=== PATIENT | male | born 1980 | race Hispanic/Latino ===

== ENCOUNTER → 2020-03-06 | Day surgery (SDC) | payer BC ==
[~2020-03-06] MED LIST: B&O 60MG R/S 60 MG SUPP PR ONE; DEXAMETHASONE SOD PHOS INJ 4 MG/ML VIAL ONE; FENTANYL CITRATE/PF 100MCG/2 ML INJ ONE; FLOMAX0.4 MG PO; GENTAMICIN 80MG/NS 100 ML 200 ML IV ONE; IOPAMIDOL 300MG/ML 50ML INFUS..BTL IV ONE; KETOROLAC TROMETHAMINE 30 MG/ML VIAL ONE; LIDOCAINE HCL 2% LOCAL INJ 5 ML SDV VIAL INJ ONE; METOCLOPRAMIDE HCL 10 MG/2ML VIAL ONE; MIDAZOLAM HCL 2 MG/2 ML VIAL ONE; ONDANSETRON HCL INJ 2MG/ML 2ML 2 MG/ML VIAL ONE; PROPOFOL IV EMULSION 10 MG/ML 20 ML VIAL ONE; SEVOFLURANE INHAL SOLN 250 ML PEN BTL ONE
[2020-03-06 11:45] VITALS: BP 125/60
--- NOTE | 2020-03-20 10:51 | Operative Report ---
DATE OF PROCEDURE: 03/06/2020 SURGEON: Holland Faulkner MD PREOPERATIVE DIAGNOSES: 1. Intravesical fistula. 2. Urinary tract infections. POSTOPERATIVE DIAGNOSES: 1. Intravesical fistula. 2. Urinary tract infections. OPERATION PERFORMED: 1. Cystourethroscopy with bilateral ureteral catheterization and retrograde ureteropyelography (separate procedure performed for the urinary tract infections). 2. Interpretation of retrograde ureteropyelography. 3. Supervision of fluoroscopy, no radiologist present. 4. Cystourethroscopy with insertion of bilateral indwelling ureteral stents (separately performed to assist this as next surgery to avoid ureteral injury with the performance of fistula repair). ANESTHESIA: General. COMPLICATIONS: None. CLINICAL SUMMARY: Bony Suresh is a 40-year-old man who has had symptoms consistent with a colovesical fistula for many years. The patient is brought for evaluation and stenting if fistula is suspected in preparation for the next step of management in conjunction with General Surgery. He is aware of the risks of bleeding, infection, injury to adjacent structures, need for additional procedures and the fact that he will have a temporary indwelling ureteral stents that will require followup and removal. He understood these risks and elected to proceed. OPERATIVE PROCEDURE IN DETAIL: Informed consent was verified. Bony Suresh was properly identified, taken to the operating room, placed on the cystoscopy table in supine position. Anesthesia was uneventfully begun. The patient was then carefully and gently repositioned in the dorsal lithotomy position. All pressure points well padded. His genitalia were prepared and draped in usual sterile fashion. The cystoscope sheath with the visual obturator in place was atraumatically inserted into the patient's urethra, was guided unremarkably urethra through normal sphincteric region through the prostate bed, which was unremarkable into the patient's bladder. There was evidence of chronic and acute cystitis. There was a fistula noted at the dome of this erythematous region with noted there. There were no suspicious mucosal lesions. There were no signs of cancer. A ureteral catheter was used to cannulate each ureter and retrograde ureteropyelograms were performed with cystoscopic fluoroscopic guidance. Bilateral indwelling ureteral stents were then placed to coil the patient's kidneys as well as the patient's bladder. The retaining sutures were cut short. Interpretation of retrograde ureteropyelography contrast was instilled in retrograde fashion bilaterally. There were no tumors, no stones, and no diverticula. Unobstructed drainage was observed bilaterally fluoroscopically. The stents were in good position, coiled in the patient's kidneys as well as the patient's bladder at end of the case. The patient's bladder was drained. Cystoscope was withdrawn. Belladonna and opium suppository were placed revealing a small 20 g prostate, smooth, nonfluctuant without any nodules. The patient was then uneventfully reversed from anesthesia and taken to recovery in stable condition. Plan will be to have the patient complete his general surgery workup in preparation for enterovesical fistula repair, which we will perform in conjunction with General Surgery service. MD MAX Schwarz/JENNIFER /[id number]
== END | disposition home or self-care (01) ==
LOC: OR 08:45
PROVIDERS: ATTEND Urology
DX: N30.00 Acute cystitis without hematuria (principal); N32.1 Vesicointestinal fistula; N30.20 Other chronic cystitis without hematuria; E66.01 Morbid (severe) obesity due to excess calories; I10 Essential (primary) hypertension; K57.90 Diverticulosis of intestine, part unspecified, without perforation or abscess without bleeding; K42.9 Umbilical hernia without obstruction or gangrene; I83.90 Asymptomatic varicose veins of unspecified lower extremity; Z01.810 Encounter for preprocedural cardiovascular examination; Z01.812 Encounter for preprocedural laboratory examination; Z11.59 Encounter for screening for other viral diseases
CPT/HCPCS: 52332; 74420; 87086; 87186; 93005; C1769; C2617; J1100; J1580; J1885; J2001; J2250; J2405; J2704; J2765; J3010; Q9967; U0002

== ENCOUNTER 2020-04-29 06:52 | Inpatient (IN) | payer BC ==
[2020-04-24 10:15] LABS: BASOPHILS % 0.4 % (0.0-1.0); EOSINOPHILS # (AUTO) 0.2 (0.0-0.4); EOSINOPHILS % 2.4 % (0.0-6.0); HEMOGLOBIN 15.2 g/dL (14.0-18.0); LYMPHOCYTES # (AUTO) 2.3 (1.0-3.2); LYMPHOCYTES % 24.5 % (18.0-39.1); MEAN CORPUSCULAR VOLUME 84.7 fL (81-99); MONOCYTES # (AUTO) 0.4 (0.2-0.8); MONOCYTES % 4.5 % (4.4-11.3); NEUTROPHILS # (AUTO) 6.2 (2.1-6.9); NEUTROPHILS % 67.4 % (38.7-80.0); PLATELET COUNT 297 x10e3/uL (140-360); RED BLOOD COUNT 5.43 x10e6/uL (4.3-5.7); RED CELL DISTRIBUTION WIDTH 14.2 % (11.7-14.4)
[2020-04-24 10:45] LABS: ALANINE AMINOTRANSFERASE 34 IU/L (0-55); ALBUMIN 3.8 g/dL (3.5-5.0); ALBUMIN/GLOBULIN RATIO 0.7 (0.8-2.0); ALKALINE PHOSPHATASE 84 IU/L (40-150); ANION GAP 12.3 mmol/L (8-16); BLOOD UREA NITROGEN 14 mg/dL (7-26); BUN/CREATININE RATIO 17 (6-25); CALCIUM 9.4 mg/dL (8.4-10.2); CARBON DIOXIDE 25 mmol/L (22-29); CHLORIDE 105 mmol/L (98-107); CREATININE, SERUM 0.83 mg/dL (0.72-1.25); EST GLOMERULAR FILTRATION RATE > 60 ML/MIN (60-); GLUCOSE 97 mg/dL (74-118); POTASSIUM 4.3 mmol/L (3.5-5.1); SODIUM 138 mmol/L (136-145)
[~2020-04-29] VITALS: Ht 185.4 cm; Wt 176.4 kg
[~2020-04-29 06:52] MED LIST changes: -B&O 60MG R/S 60 MG SUPP PR ONE; -DEXAMETHASONE SOD PHOS INJ 4 MG/ML VIAL ONE; -FENTANYL CITRATE/PF 100MCG/2 ML INJ ONE; -GENTAMICIN 80MG/NS 100 ML 200 ML IV ONE; -IOPAMIDOL 300MG/ML 50ML INFUS..BTL IV ONE; -KETOROLAC TROMETHAMINE 30 MG/ML VIAL ONE; -LIDOCAINE HCL 2% LOCAL INJ 5 ML SDV VIAL INJ ONE; -METOCLOPRAMIDE HCL 10 MG/2ML VIAL ONE; -MIDAZOLAM HCL 2 MG/2 ML VIAL ONE; -ONDANSETRON HCL INJ 2MG/ML 2ML 2 MG/ML VIAL ONE; -PROPOFOL IV EMULSION 10 MG/ML 20 ML VIAL ONE; -SEVOFLURANE INHAL SOLN 250 ML PEN BTL ONE; +TYLENOL325 M2 PO
[2020-04-29] MEDS ORDERED: GENTAMICIN 80MG/NS 100 ML 200 ML IV ONE (07:30)
[2020-04-29] MEDS ORDERED: BUPIVACAINE 0.25% 30ML SDV ONE (10:07)
[2020-04-29] MEDS ORDERED: PROPOFOL IV EMULSION 10 MG/ML 20 ML VIAL ONE (12:17)
[2020-04-29] MEDS ORDERED: PHENYLEPHRINE HCL 1% 10 MG/ML VIAL ONE (12:17)
[2020-04-29] MEDS ORDERED: SUCCINYLCHOLINE CHLORIDE 20 MG/ML 10ML VIAL ONE (12:17)
[2020-04-29] MEDS ORDERED: DESFLURANE 240 ML BTL INH ONE (12:17)
[2020-04-29] MEDS ORDERED: ROCURONIUM BROMIDE 10 MG/ML 5ML VIAL IV ONE (12:17)
[2020-04-29] MEDS ORDERED: ONDANSETRON HCL INJ 2MG/ML 2ML 2 MG/ML VIAL ONE (12:17)
[2020-04-29] MEDS ORDERED: CEFTRIAXONE SOD 1 GM VIAL ONE (12:17)
[2020-04-29] MEDS ORDERED: CEFAZOLIN SOD 1 GM VIAL ONE (12:17)
[2020-04-29] MEDS ORDERED: DEXAMETHASONE SOD PHOS INJ 4 MG/ML VIAL ONE (12:17)
[2020-04-29] MEDS ORDERED: LIDOCAINE HCL 2% LOCAL INJ 5 ML SDV VIAL INJ ONE (12:17)
[2020-04-29] MEDS ORDERED: MIDAZOLAM HCL 2 MG/2 ML VIAL ONE (13:47)
[2020-04-29] MEDS ORDERED: KETAMINE HCL INJ 50 MG/ML 10 ML VIAL ONE (13:47)
[2020-04-29] MEDS ORDERED: FENTANYL CITRATE/PF 100MCG/2 ML INJ ONE ×2 (13:47→16:05)
[2020-04-29] MEDS ORDERED: SUGAMMADEX SODIUM 200 MG/2 ML VIAL IV ONE (14:52)
[2020-04-29] MEDS: SODIUM CHLORIDE 0.9% 250ML IRRIG IR SCH ×2 (15:00→19:34)
[2020-04-29] MEDS ORDERED: NALOXONE HCL INJ 0.4 MG/ML AMP IV PRN (15:00)
[2020-04-29] MEDS: CEFTRIAXONE SOD 2 GM/NS 100 ML 100 ML IV SCH (15:00)
[2020-04-29] MEDS ORDERED: HYDROMORPHONE 1MG/1ML INJ ONE (15:13)
[2020-04-29] MEDS: HYDROMORPHONE 0.2MG/ML-SOD CHL 30ML PCA SYRINGE IV PRN (15:30)
--- OUTSIDE RECORDS SUMMARY | 2020-04-29 15:40 | XMS REPORT | Continuity of Care Document ---
Author Author Tawny Jose [facility] ELIF Davies [employer] Address Unknown Phone Unavailable Care Team Providers Care Senior C Developer Name Role Phone [employer] Unavailable Un available Problems Problem Status Onset Date Classification Date Reported Comments Source Morbid (severe) obesity due to excess calories Active Problem 02/26/2020 [facility] Acute gout involving toe of right foot, unspecified cause Active Prob cb 02/26/2020 [facility] Benign prostatic hyperplasia (BPH) with urinary urgenc y Active Problem 02/26/2020 [facility] Body mass index (BMI) 50.0-59.9, adult Active Problem 02/2020 [facility] Frequent UTI Active Problem 02/26/2020 [facility] Encntr for general adult medical exam w/ o abnormal findings Active Diag nosis 07/04/2019 [facility] Encntr screen for infections w sexl mode of transmiss Active Diagnosis 07/04/2019 [facility] Vesicointestinal fistula Active Diagnosis 02/26/2020 [facility] Medications Medication Details Route Status Patient Instructions Ordering Provider Order Date Source Naproxen 1 tablet with food or milk as needed Orally Active 500 mg Orally every 12 hrs [place] 06/27/2019 [facility] Allergies, Adverse Reactions, Alerts Substance Category Reaction Severity Reaction type Status Date Reported Comments Source N.K.D.A. Adverse Reaction Info Not Available Adverse Reaction 06/27/2019 [facility] Immunizations No Data Provided for This Section Results No Data Provided for This Section Pathology Reports No Data Provided for This Section Diagnostic Reports No Data Provided for This Section Consultation Notes No Data Provided for This Section Discharge Summaries No Data Provided for This Section History and Physicals No Data Provided for This Section Vital Signs Vital Sign Value Date Comments Source Weight 415 06/27/2019 [facility] Height 74 0 06/27/2019 [facility] Temperature Oral (F) 98.5 F 06/27/2019 [facility] Heart Rate 80 06/27/2019 [facility] Diastolic (mm Hg) 90 06/27/2019 [facility] Systolic (mm Hg) 128 06/27/2019 [facility] Encounters No Data Provided for This Section Procedures No Data Provided for This Section Assessment and Plan No Data Provided for This Section Plan of Care No Data Provided for This Section Social History No Data Provided for This Section Family History No Data Provided for This Section Advance Directives No Data Provided for This Section Functional Status No Data Provided for This Section
--- OUTSIDE RECORDS SUMMARY | 2020-04-29 15:40 | XMS REPORT | Continuity of Care Document ---
Author Author [facility] t Organization [facility] Address [address] [place] [address] Phone Unavailable Care Team Providers Care Senior Systems Architect Name Role Phone Unavailable Unavailable Payers Payer Name Policy Type Policy Number Effective Date Expiration Date S ource Problems Condition Name Condition Details Condition Category Status Onset Date Resolution Date Last Treatment Date Treating Clinician Comments Source Morbid (severe) obesity due to excess calories Morbid (severe) obesity due to excess calories Active Problem 02/26/2020 [facility] Problem Active 2020-02-26 02:00:59 [facility] Acute gout involving toe of right foot, unspecified ca use Acute gout involving toe of right foot, unspecified cause Active Problem 02/26/2020 [facility] Problem Active 2020-02-26 02:00:59 [facility] Benign prostatic hyperplasia (BPH) with urinary urgenc y Benign prostatic hyperplasia (BPH) with urinary urgency Active Problem 02/26/2020 [facility] Problem Active 2 02:00:59 [facility] Body mass index (BMI) 50.0-59.9, adult Body mass index (BMI) 50.0-59.9, adult Active Problem 02/26/2020 [facility] Problem Active 2020-02-26 02:00:59 [facility] Frequent UTI Freq uent UTI Active Problem 02/26/2020 [facility] Problem Active 2 02:00:59 [facility] Encntr for general adult medical exam w/o abnormal fin dings Encntr for general adult medical exam w/o abnormal findings Active Diagnosis 07/04/2019 [facility] Diagnosis Active 2019-07-04 03:02:45 [facility] Encntr screen for infections w sexl mode of transmiss Encntr screen for infections w sexl mode of transmiss Active Diagnosis 07/04/2019 [facility] Diagnosis Active 2019-07-04 03:02:45 [facility] Vesicointestinal fistula Vesi cointestinal fistula Active Diagnosis 02/26/2020 [facility] Diagnosis Active 2020-02-26 02:00:59 [facility] Allergies, Adverse Reactions, Alerts Allergy Name Allergy Type Status Severity Reaction(s) Onset Date Inacti ve Date Treating Clinician Comments Source MadaiA. N.Aniya.A. Active Info Not Available 2019-06-27 00:00:00 [facility] No Known Allergies DA Active U 2019-06-16 00:00:00 [facility] No Known Drug Intolerances DA Active U 2009-04-21 00:00:0 0 [facility] Medications Ordered Medication Name Filled Medication Name Start Date Stop Da te Current Medication? Ordering Clinician Indication Dosage Frequency Signature (SIG) Comments Components Source Naproxen 2019-06-27 00:00:00 Yes Aurora Rosasjuanitoer 1 tablet with food or milk as needed [facility] Vital Signs Vital Name Observation Time Observation Value Comments Source Weight 2019-06-27 15:30:00 [facility] Height 2019-06-27 15:30:00 [facility] Temperature Oral (F) 2019-06-27 15:30:00 98.5 F [facility] Heart Rate 2019-06-27 15:30:00 [facility] Diastolic (mm Hg) 2019-06-27 15:30:00 [facility] Systolic (mm Hg) 2019-06-27 15:30:00 [facility] Procedures This patient has no known procedures. Encounters Start Date/Time End Date/Time Encounter Type Admission Type [facility] Care Department Encounter ID Source 2020-02-21 11:22:00 2020-02-21 11:22:00 [facility] [id number] [employer] 2020-01-30 10:34:00 2020-01-30 10:34:00 [facility] [id number] [id number] 2020-01-30 10:34:00 2020-01-30 10:34:00 [facility] [id number] [employer] 2020-01-30 10:05:00 2020-01-30 10:05:00 [facility] [id number] [employer] 2019-07-03 08:24:00 2019-07-03 08:24:00 [facility] [id number] [employer] 2019-07-02 13:07:00 2019-07-02 13:07:00 [facility] [id number] [id number] 2019-06-30 00:42:00 2019-06-30 00:42:00 Emergency [facility] 2019-06-27 09:30:00 2019-06-27 09:30:00 [facility] [id number] [id number] 2019-04-17 18:29:00 2019-04-17 18:29:00 Emergency E [facility] Results Test Description Test Time Test Comments Results Result Comments Source - XR CONT ENEMA W/WO KUB 2020-03-26 13:12:00 FA X: Mono CanelaKatie Emmy [phone] [place]: B St: REG FAX: Erick Hart [phone] Name: ELIF NASCIMENTO [facility] : 1980 Age/S: 40/M [address] [facility] Unit #: [id number] Loc: [place] [address] Phys: Erick De Jesus MD Acct: [id number] Dis Date: Status: REG CLI PHONE #: [phone] Exam Date: 03/26/2020 1140 FAX #: [phone] Reason: DIVERTICULITIS EXAMS: CPT CODE: [id number] XR CONT ENEMA W/WO KUB 12526 HISTORY: DIVERTICULITIS TECHNIQUE: Multiple overhead films and fluoroscopic spot views from double contrast enema. Please see technologist report for fluoroscopy time and radiation dose. FINDINGS: Geological Technical Officer view of the abdomen and pelvis demonstrates nonspecific nonobstructive bowel gas pattern. Bilateral ureteral stents were placed. Free retrograde flow of contrast to the cecum with reflux into the terminal ileum. No persistent intraluminal filling defects, mucosal irregularity, stricture, nor extrinsic mass effect. There are a few diverticuli within the sigmoid colon. No contrast is seen within the urinary bladder lumen to suggest colovesical fistula. IMPRESSION: Mild colonic diverticulosis involving the sigmoid colon. No fistulous connection to the bladder is seen at this time. Location: [facility] at 1312 Reported and signed by: Amadou Talley MD CC: Katie Canela; Erick De Jesus MD Technologist: RT Smith(Yaneli) Trnscrd oClin ate/Time/By: 03/26/2020 (4497) : By: [email or web address] Orig Print D/T: S: 03/26/2020 (6769) PAGE 1 Signed Report - CT ABD PELVIS W/O CONT 2019-06-16 02:03:00 N angely: ELIF NASCIMENTO [facility] : 1980 Age/S: 39 / M [address] Unit #: [id number] Loc: [place] [address] Phys: Ken Arriaza MD Acct: [id number] Dis Date: Status: REG ER PHONE #: [phone] Exam Date: 06/16/2019 0152 FAX #: Reason: right flank pain EXAMS: CPT: [id number] CT ABD PELVIS W/O CONT 04586 EXAM: CT ABDOMEN AND PELVIS WITHOUT IV CONTRAST DICTATION LOCATION: H48 HISTORY: Male, 39 years of age with right flank pain, dysuria TECHNIQUE: Contrast: No IV contrast was given. No GI contrast was given. Noncontrast phase: Abdomen and pelvis Reconstructions: Coronal and sagittal planes One or more of the following dose reduction techniques were used: Automated exposure control; adjustment of the mA and/or kV according to the patient size; and/or use of iterative reconstruction technique. COMPARISON: None FINDINGS: Statements: Study is technically limited by patient's morbidly obese body habitus. Lack of intravenous contrast compromises evaluation of abdominopelvic organs and vasculature. Lower thorax: Unremarkable. Hepatobiliary: Liver is diffusely fatty infiltrated. No hepatic mass or enlargement. The gallbladder is normal. No biliary dilation. Pancreas: Normal. Spleen: Normal. Adrenals: Normal. Genitourinary: No renal calculus or hydronephrosis. No ureteral stones. There is air within the urinary bladder lumen as well as faint intramural air in the left lateral bladder wall on series 2 image 138. No bladder calculi, diverticula, or filling defect. Urinary bladder wall is mildly thickened, especially anteriorly. The visualized reproductive organs are unremarkable. Gastrointestinal: Several colonic diverticula are present, mostly in the sigmoid region. No bowel obstruction or perienteric inflammation. The appendix is normal. Vascular: No aortic aneurysm. PAGE 1 Signed Report (CONTINUED) [facility] [place] 1980 Age/S: 39 / M [address] [facility] Unit #: [id number] Loc: [place] [address] Phys: Ken Arriaza MD Acct: [id number] Dis Date: Status: REG PHONE #: [phone] Exam Date: 06/16/2019 0152 FAX #: Reason: right flank pain EXAMS: CPT: [id number] CT ABD PELVIS W/O CONT 75325 <Continued> Lymphatics: No enlarged lymph nodes by CT size criteria. Bones/Soft Tissues: No acute osseous findings. Small 2 cm fat-containing umbilical hernia is noted. No other ventral hernias are seen. Peritoneum/Other: No free intraperitoneal air. No free intraperitoneal fluid. IMPRESSION: 1. Intramural air and intraluminal air in the urinary bladder highly suggestive of emphysematous cystitis. Please correlate with urinalysis. 2. Kidneys and upper collecting systems are unremarkable. 3. Fatty liver. 4. Diverticulosis coli without evidence for acute diverticulitis. 5. No free intraperitoneal fluid or free air. at 0203 Reported and signed by: Sol Woods MD CC: Technologist:Dee Dee Campbell RT(R)(CT)(MRI) CTDI: DLP: Trnscb Date/Time: 06/16/2019 (0203) t.[email or web address].CLW Orig Print D/T: S: 06/16/2019 (0206) PAGE 2 Signed Report UA RFLX MICR CULT IF INDICATED 2019-06-16 00:52:00 Test Item UA COLOR (test code = COLU) MIGUEL discript YEL/STRAW A UA APPEARANCE (test code = APPU) HAZY discript CLEAR A UA GLUCOSE DIPSTICK (test code = DGLUU) NEGATIVE mg/dL NEG UA BILIRUBIN DIPSTICK (test code = BILU) 1+ mg/dL NEG A UA KETONE DIPSTICK (test code = KETU) NEGATIVE mg/dL NEG UA SPECIFIC GRAVITY (test code = SGU) 1.015 SG 1.005-1.030 UA BLOOD DIPSTICK (test code = KONG) 3+ mg/DL NEG A UA PH DIPSTICK (test code = VIRAJ) 6.5 pH UNITS 5.0-7.0 UA PROTEIN DIPSTICK (test code = PROU) 2+ mg/dL NEG A UA UROBILINIOGEN DIPSTICK (test code = URO) 1.0 mg/dL <2.0 UA NITRITE DIPSTICK (test code = KEANU) POSITIVE SCREEN NEG A UA LEUKOCYTE ESTERASE DIPSTICK (test code = LEUU) 2+ Leuk/mcL NEGA TIVE A UA WBC (test code = WBCU) 20-30 #WBC/HPF 0-3 A UA RBC (test code = RBCU) 5-10 #RBC/HPF 0-3 A UA BACTERIA (test code = BACU) 1+ /HPF NONE-TRACE A UA SQUAMOUS CELLS (test code = SQU) 1+ /HPF NONE UA AMORPHOUS SEDIMENT (test code = AMORU) 1+ NONE SEEN A UA CULTURE NEEDED? (test code = UACULT) YES,WBC>10 & EPI<25 Criteria Culture CHK SOURCE OF URINE: CLEAN CATCHIndication for culture: Dysuria/FrequencyUA RFLX MICR CULT IF [id number] 00:30:00* Test Item Value Reference Range Interpretation Comments UA COLOR (test code = COLU) MIGUEL discript YEL/STRAW A UA APPEARANCE (test code = APPU) HAZY discript CLEAR A UA GLUCOSE DIPSTICK (test code = DGLUU) NEGATIVE mg/dL NEG UA BILIRUBIN DIPSTICK (test code = BILU) 1+ mg/dL NEG A UA KETONE DIPSTICK (test code = KETU) NEGATIVE mg/dL NEG UA SPECIFIC GRAVITY (test code = SGU) 1.015 SG 1.005-1.030 UA BLOOD DIPSTICK (test code = KONG) 3+ mg/DL NEG A UA PH DIPSTICK (test code = VIRAJ) 6.5 pH UNITS 5.0-7.0 UA PROTEIN DIPSTICK (test code = PROU) 2+ mg/dL NEG A UA UROBILINIOGEN DIPSTICK (test code = URO) 1.0 mg/dL <2.0 UA NITRITE DIPSTICK (test code = KEANU) POSITIVE SCREEN NEG A UA LEUKOCYTE ESTERASE DIPSTICK (test code = LEUU) 2+ Leuk/mcL NEGA TIVE A UA CULTURE NEEDED? (test code = UACULT) Criteria Culture CHK SOURCE OF URINE: CLEAN CATCHIndication for culture: Dysuria/Frequency
--- NOTE | 2020-04-29 16:35 | NUR ---
received to rm sleeping easily awakens, updated on poc voiced understanding, ivf infusing to lfa 20g no ss of infiltration noted, ngt r nare, with bloody fluid noted, ritchie to bsd with yellow urine noted, no other co vocied call light in reach will continue to monitor
--- NOTE | 2020-04-29 16:38 | Operative Report ---
DATE OF PROCEDURE: 04/29/2020 SURGEON: Erick De Jesus MD PREOPERATIVE DIAGNOSIS: Sigmoid diverticulitis with colovesical fistula. POSTOPERATIVE DIAGNOSIS: Sigmoid diverticulitis with colovesical fistula. OPERATIONS PERFORMED: Exploratory laparotomy, low-anterior colon resection, takedown of colovesical fistula. SOFTWARE CLIENT ARCHITECT: Dr. Jass De Jesus. ANESTHESIA: General endotracheal. COMPLICATIONS: None. ESTIMATED BLOOD LOSS: 200 mL. DESCRIPTION OF PROCEDURE: With the patient lying in bed in the supine position under good general endotracheal anesthesia, the abdomen was prepped with Betadine solution and draped in the usual manner. A lower abdominal midline incision was made. It was carried down through the subcutaneous tissue down to the fascia. The patient is morbidly obese and there was extreme amount of pannus present. The midline fascia was then opened. The peritoneum was opened and the abdomen was entered. Exploration of the abdominal cavity at this point revealed that there was a loop of sigmoid colon that was stuck tightly adherent to the bladder. The proximal colon had few diverticula and the distal rectal area appeared to be fine. The rest of the abdominal exploration was otherwise within normal limits. The left colon was then mobilized of the lateral gutter and the descending colon was brought down without any difficulty. The colon was then divided at the level of the descending colon with an application of SERENA-75 stapler. The mesentery of the colon was then slowly and carefully divided with the EnSeal device all the way down to the junction of the distal sigmoid colon and the rectum and at that point, the rectosigmoid junction was divided with another application of SERENA-75 stapler. At this point, the colon was only attached by the fistula to the bladder. At this point, Dr. Faulkner came in and proceeded to separate the bladder from the colon and then he did the repair of the bladder fistula, which he will dictate in a separate note. Once he was finished with that, the case will return back to us. Both the proximal and distal end of the colon were then prepared for anastomosis and once this was done, the descending colon was brought down to the rectosigmoid junction and a posterior row of 3-0 silk was done. Both staple lines were then removed and an internal row of 3-0 chromic was performed without any difficulty. After this was done, gloves and instruments were changed and the anastomosis was completed with an anterior seromuscular 3-0 silk sutures. This gave us a satisfactory anastomosis without any tension. The nearby fat was then fixed to cover the anastomosis and the omentum was further placed between the colon and the bladder, and the abdomen was copiously irrigated. Hemostasis was ascertained and the abdomen was then closed in layers. The peritoneum was closed with a running suture of #1 Vicryl and the midline fascia was closed with a running suture of #1 PDS along with interrupted [id number] of #1 Ethibond. The subcutaneous tissue was approximated with 2-0 Vicryl and the skin was closed with interrupted vertical mattress sutures of 2-0 nylon and liliana. The dressing was applied. The sponge, lap, and needle count was correct. The patient tolerated the procedure well and returned to the recovery room in stable condition. MD KIT Leo/JENNIFER /[id number]
[2020-04-29 16:46] VITALS: BP 145/92
[2020-04-29 17:18] VITALS: BP 143/90
[2020-04-29] MEDS: DEXTROSE 5%/LACTATED RINGERS 1,000 ML IV SCH (18:22)
[2020-04-29] MEDS: PANTOPRAZOLE 40 MG 10ML VIAL IV SCH (18:22)
--- NOTE | 2020-04-29 18:53 | NUR ---
WALKING ROUNDS PERFORMED, RECEIVED PT LAYING FOWLERS IN BED, AAOX3, LETHARGIC, RR EVEN AND NON-LABORED, O2 BY NC AT 3L. NO S/SX OF DISTRESS NOTED. NGT TO LCS. LANDIN TO GRAVITY. PT HAS DISTRIBUTION SALES REPRESENTATIVE PUMP FOR PAIN CONTROL. LEFT PT LAYING FOWLERS IN BED, BED IN LOW LOCKED POSITION, SIDE RAILS UPX2, CALL LIGHT AND PHONE WITHIN REACH. FAMILY AT BEDSIDE.
[2020-04-29 20:00] VITALS: BP 143/98
[2020-04-29] MEDS: ONDANSETRON HCL INJ 2MG/ML 2ML 2 MG/ML VIAL IV PRN (21:05)
[2020-04-29 21:07] VITALS: BP 143/98
--- NOTE | 2020-04-29 23:00 | NUR ---
ALTERNATING PRESSURE PUMP APPLIED TO BED.
[2020-04-30] VITALS (8 sets, daily range): BP systolic 129–150; BP diastolic 81–97
[2020-04-30] MEDS: SODIUM CHLORIDE 0.9% 250ML IRRIG IR SCH ×7 (00:14→22:14)
[2020-04-30] MEDS: DEXTROSE 5%/LACTATED RINGERS 1,000 ML IV SCH ×5 (00:18→21:00)
[2020-04-30] MEDS: ONDANSETRON HCL INJ 2MG/ML 2ML 2 MG/ML VIAL IV PRN ×4 (01:40→19:23)
[2020-04-30] MEDS: HYDROMORPHONE 0.2MG/ML-SOD CHL 30ML PCA SYRINGE IV PRN ×3 (01:50→21:16)
--- NOTE | 2020-04-30 02:43 | Operative Report ---
DATE OF PROCEDURE: 04/29/2020 SURGEON: Holland Faulkner MD PREOPERATIVE DIAGNOSIS: Colovesical fistula POSTOPERATIVE DIAGNOSIS: Colovesical fistula. OPERATIONS PERFORMED: 1. Excision of colovesical fistula. 2. Cystorrhaphy. AGILE SCRUM MASTER: Erick De Jesus MD ANESTHESIA: General. COMPLICATIONS: None. CLINICAL SUMMARY: Bony Suresh is a 40-year-old man, who was found to have an enterovesical fistula. The patient is brought to the operating room for management. Bilateral ureteral stents were previously placed. He is aware of the risks of bleeding, infection, injury to adjacent structures, need for additional procedures and elected to proceed. He also understands that he still has his indwelling ureteral stents and he will have them postoperatively and he will require to return back to the operating room to remove those stents. OPERATIVE PROCEDURE IN DETAIL: Informed consent was verified. Bony Suresh was properly identified, taken to the operating room, placed on the operating table in supine position. Anesthesia was uneventfully begun. The patient was carefully and gently repositioned in the lithotomy position with all pressure points well padded. Dr. De Jesus performed proctoscopy and then the patient's abdomen, genitalia, and perineum were shaved, prepared, and draped in usual sterile fashion. The patient was opened by Dr. De Jesus. Once he isolated the sigmoid colon, I scrubbed in. Dr. De Jesus divided the colon between liliana both proximally and distally around this diseased area that was attached to the bladder. We then utilized electrocautery to incise through the fistulous tract until it was removed. There was a chronically adherent very large and firm area that we resected out. There was another smaller area where a loop of the sigmoid colon was attached to the bladder, but this was not fistulous in nature. Once we removed the specimen, copious irrigation was performed. We filled the bladder to note where the fistulous tract is. We then approximated the excised portion of the bladder in 2 layers utilizing 2-0 chromic suture in a running fashion. This resulted in complete closure of the fistulous tract. Copious irrigation was performed. The case was then turned over back to Dr. De Jesus to complete the general surgical portion of the procedure. Holland Faulkner MD OH/MODL /[id number]
[2020-04-30 05:11] LABS: BASOPHILS % 0.2 % (0.0-1.0); EOSINOPHILS % 0.1 % (0.0-6.0); HEMATOCRIT 40.2 % (38.2-49.6); HEMOGLOBIN 13.3 g/dL (14.0-18.0); LYMPHOCYTES # (AUTO) 1.3 (1.0-3.2); LYMPHOCYTES % 8.7 % (18.0-39.1); MEAN CORPUSCULAR HEMOGLOBIN 27.7 pg (28-32); MEAN CORPUSCULAR HGB CONC 33.1 g/dL (31-35); MEAN CORPUSCULAR VOLUME 83.8 fL (81-99); MONOCYTES # (AUTO) 0.9 (0.2-0.8); MONOCYTES % 5.7 % (4.4-11.3); NEUTROPHILS # (AUTO) 12.6 (2.1-6.9); NEUTROPHILS % 84.8 % (38.7-80.0); PLATELET COUNT 290 x10e3/uL (140-360); RED CELL DISTRIBUTION WIDTH 13.7 % (11.7-14.4)
[2020-04-30 05:36] LABS: ANION GAP 10.9 mmol/L (8-16); BLOOD UREA NITROGEN 9 mg/dL (7-26); BUN/CREATININE RATIO 12 (6-25); CALCIUM 8.4 mg/dL (8.4-10.2); CARBON DIOXIDE 27 mmol/L (22-29); CHLORIDE 102 mmol/L (98-107); CREATININE, SERUM 0.76 mg/dL (0.72-1.25); EST GLOMERULAR FILTRATION RATE > 60 ML/MIN (60-); GLUCOSE 150 mg/dL (74-118); POTASSIUM 3.9 mmol/L (3.5-5.1); SODIUM 136 mmol/L (136-145)
--- NOTE | 2020-04-30 07:00 | NUR ---
received report from off going nurse. Pt lying in bed semi-fowlers. pt in no apparent distress.
[2020-04-30] MEDS: ACETAMINOPHEN 1000 MG/100 ML IV PRN ×3 (07:58→21:00)
[2020-04-30] MEDS: CEFTRIAXONE SOD 2 GM/NS 100 ML 100 ML IV SCH (16:30)
[2020-04-30] MEDS: PANTOPRAZOLE 40 MG 10ML VIAL IV SCH (17:12)
--- NOTE | 2020-04-30 18:50 | NUR ---
WALKING ROUNDS PERFORMED, RECEIVED PT LAYING FOWLERS IN RECLINER CHAIR, AAOX3, RR EVEN AND NON-LABORED, ON ROOM AIR. NGT TO LCS. NO S/SX OF DISTRESS NOTED. LEFT PT LAYING FOWLERS IN CHAIR WITH CALL LIGHT AND PHONE WITHIN REACH. FAMILY AT BEDSIDE.
--- NOTE | 2020-04-30 19:00 | NUR ---
report given to on coming nurse. pt sitting up in chair and no apparent distress.
[2020-05-01] VITALS (9 sets, daily range): BP systolic 128–148; BP diastolic 80–94
[2020-05-01] MEDS: CEPACOL SORE THROAT LOZENGES PO PRN ×2 (00:10→08:44)
[2020-05-01] MEDS: DEXTROSE 5%/LACTATED RINGERS 1,000 ML IV SCH ×3 (02:53→17:48)
[2020-05-01] MEDS: SODIUM CHLORIDE 0.9% 250ML IRRIG IR SCH ×6 (02:53→23:38)
[2020-05-01] MEDS ORDERED: ACETAMINOPHEN 1000 MG/100 ML 100 ML IV ONE ×2 (03:39→22:46)
[2020-05-01] MEDS: ACETAMINOPHEN 1000 MG/100 ML IV PRN ×4 (03:46→23:38)
[2020-05-01] MEDS: ONDANSETRON HCL INJ 2MG/ML 2ML 2 MG/ML VIAL IV PRN ×3 (03:46→16:35)
[2020-05-01 04:42] LABS: BASOPHILS # (AUTO) 0.1 (0.0-0.1); BASOPHILS % 0.5 % (0.0-1.0); EOSINOPHILS # (AUTO) 0.2 (0.0-0.4); EOSINOPHILS % 1.7 % (0.0-6.0); HEMATOCRIT 38.7 % (38.2-49.6); HEMOGLOBIN 12.6 g/dL (14.0-18.0); LYMPHOCYTES # (AUTO) 2.1 (1.0-3.2); LYMPHOCYTES % 21.5 % (18.0-39.1); MEAN CORPUSCULAR HEMOGLOBIN 27.7 pg (28-32); MEAN CORPUSCULAR HGB CONC 32.6 g/dL (31-35); MEAN CORPUSCULAR VOLUME 85.1 fL (81-99); MONOCYTES # (AUTO) 0.7 (0.2-0.8); NEUTROPHILS # (AUTO) 6.6 (2.1-6.9); NEUTROPHILS % 68.8 % (38.7-80.0); PLATELET COUNT 246 x10e3/uL (140-360); RED BLOOD COUNT 4.55 x10e6/uL (4.3-5.7); RED CELL DISTRIBUTION WIDTH 14.1 % (11.7-14.4)
[2020-05-01 05:04] LABS: ANION GAP 9.6 mmol/L (8-16); BLOOD UREA NITROGEN 8 mg/dL (7-26); BUN/CREATININE RATIO 10 (6-25); CALCIUM 8.6 mg/dL (8.4-10.2); CARBON DIOXIDE 30 mmol/L (22-29); CHLORIDE 100 mmol/L (98-107); CREATININE, SERUM 0.79 mg/dL (0.72-1.25); EST GLOMERULAR FILTRATION RATE > 60 ML/MIN (60-); GLUCOSE 120 mg/dL (74-118); POTASSIUM 3.6 mmol/L (3.5-5.1); SODIUM 136 mmol/L (136-145)
--- NOTE | 2020-05-01 07:00 | NUR ---
received report from off going nurse. Pt sitting up in chair and no apparent distress.
[2020-05-01] MEDS: HYDROMORPHONE 0.2MG/ML-SOD CHL 30ML PCA SYRINGE IV PRN (11:12)
--- NOTE | 2020-05-01 13:15 | NUR ---
staff weapons officer visited with the pt , pat expressed need of healing and prayer. staff weapons officer validated his feelings, staff weapons officer employed prayer and counseling . Pt expressed more peace and appreciated staff weapons officer visit. chaplain Paula
--- NOTE | 2020-05-01 13:54 | NUR ---
Pt complains of discomfort and unable to cough up phlegm from NG tube. Pt encourage to walk and use IS. Awaiting a call back from Dr. De Jesus.
[2020-05-01] MEDS: CEFTRIAXONE SOD 2 GM/NS 100 ML 100 ML IV SCH (15:34)
[2020-05-01] MEDS: PANTOPRAZOLE 40 MG 10ML VIAL IV SCH (15:34)
[2020-05-01] MEDS ORDERED: HYDROMORPHONE 0.2MG/ML-SOD CHL 30ML PCA SYRINGE IV PRN (17:30)
--- NOTE | 2020-05-01 19:00 | NUR ---
Resumed care of patient. Patient awake and sitting in recliner, right NGT attached to low suction, Steele catheter patent and draining clear yellow urine to gravity. BATCH PLANT SUPERVISOR pump in place, call light placed within reach. Patient instructed to call for assistance if needed, verbalized understanding. All safety measures in place. Family at bedside.
--- NOTE | 2020-05-01 19:04 | NUR ---
report given to oncoming nurse. Pt sitting up in chair and no apparent distress.
[2020-05-01] MEDS: BISACODYL 10 MG SUPP PR SCH (21:23)
--- NOTE | 2020-05-01 21:30 | NUR ---
Patient requesting IV Tylenol for mild pain. Okay to renew order per Dr. Montez De Jesus.
[2020-05-02] VITALS (7 sets, daily range): BP systolic 125–146; BP diastolic 76–97
[2020-05-02] MEDS: ONDANSETRON HCL INJ 2MG/ML 2ML 2 MG/ML VIAL IV PRN ×2 (00:42→11:07)
[2020-05-02] MEDS: DEXTROSE 5%/LACTATED RINGERS 1,000 ML IV SCH ×3 (02:29→13:40)
[2020-05-02] MEDS: SODIUM CHLORIDE 0.9% 250ML IRRIG IR SCH (02:29)
--- NOTE | 2020-05-02 04:48 | NUR ---
Patient requesting to have NGT removed, stating that he feels like his throat is closing up and that he can't breathe. O2 sat 97% on room air, NGT flushing and draining well, total 200 ml drainage noted on assistant shift supervisor. Spoke to Dr. Montez De Jesus and received orders to DC NGT and to start patient on 10 mg Reglan Q6H for 24 hours.
[2020-05-02] MEDS: METOCLOPRAMIDE HCL 10 MG/2ML VIAL IV SCH ×4 (05:00→17:40)
--- NOTE | 2020-05-02 05:00 | NUR ---
NGT removed with tip intact. Patient tolerated well. All safety measures in place.
[2020-05-02 08:12] LABS: BASOPHILS # (AUTO) 0.1 (0.0-0.1); BASOPHILS % 0.6 % (0.0-1.0); EOSINOPHILS # (AUTO) 0.3 (0.0-0.4); EOSINOPHILS % 2.6 % (0.0-6.0); HEMATOCRIT 42.6 % (38.2-49.6); HEMOGLOBIN 13.9 g/dL (14.0-18.0); LYMPHOCYTES # (AUTO) 1.4 (1.0-3.2); LYMPHOCYTES % 11.4 % (18.0-39.1); MEAN CORPUSCULAR HEMOGLOBIN 27.9 pg (28-32); MEAN CORPUSCULAR HGB CONC 32.6 g/dL (31-35); MEAN CORPUSCULAR VOLUME 85.4 fL (81-99); MONOCYTES # (AUTO) 0.6 (0.2-0.8); MONOCYTES % 4.9 % (4.4-11.3); NEUTROPHILS # (AUTO) 9.7 (2.1-6.9); NEUTROPHILS % 79.8 % (38.7-80.0); PLATELET COUNT 282 x10e3/uL (140-360); RED BLOOD COUNT 4.99 x10e6/uL (4.3-5.7); RED CELL DISTRIBUTION WIDTH 14.1 % (11.7-14.4)
[2020-05-02 08:30] LABS: ANION GAP 12.5 mmol/L (8-16); BLOOD UREA NITROGEN 5 mg/dL (7-26); BUN/CREATININE RATIO 6 (6-25); CARBON DIOXIDE 28 mmol/L (22-29); CHLORIDE 100 mmol/L (98-107); EST GLOMERULAR FILTRATION RATE > 60 ML/MIN (60-); GLUCOSE 115 mg/dL (74-118); POTASSIUM 3.5 mmol/L (3.5-5.1); SODIUM 137 mmol/L (136-145)
[2020-05-02] MEDS: BISACODYL 10 MG SUPP PR SCH (08:37)
[2020-05-02] MEDS: ACETAMINOPHEN 1000 MG/100 ML IV PRN ×2 (11:07→17:35)
[2020-05-02] MEDS: CEFTRIAXONE SOD 2 GM/NS 100 ML 100 ML IV SCH (14:42)
[2020-05-02] MEDS: PANTOPRAZOLE 40 MG 10ML VIAL IV SCH (16:31)
[2020-05-02] MEDS: D5.45%NS/KCL 20MEQ 1,000 ML IV SCH (16:31)
--- NOTE | 2020-05-02 19:35 | NUR ---
BEDSIDE SHIFT REPORT RECEIVED FROM DAY RN. PT IS ALERT AND ORIENTED X3. AT BEDSIDE. PERMISSION OK FOR TO STAY. TELE ON.RESPIRATIONS ARE EVEN AND UNLABORED. IS AT BEDSIDE. ENCOURAGED PT TO USE WHEN AWAKE.PT TOLERATING CLEAR LIQUIDS WELL. LANDIN TO GRAVITY DRAINING CLEAR YELLOW URINE. PT TO GO HOME WITH LANDIN. LANDIN CARE GIVEN BY SUKI. PT SITTING IN CHAIR. PIV 20 G- SITE HEALTHY. PT NOT USING TRANSFER PROFESSOR PUMP PREFERS TYLENOL . DRESSING DRY AND INTACT- ABDOMEN. ABD BINDER ON.CALL LIGHT WITHIN REACH. BED IN LOW POSITION.
[2020-05-02] MEDS ORDERED: ACETAMINOPHEN 1000 MG/100 ML 100 ML IV ONE (21:58)
--- NOTE | 2020-05-02 23:33 | NUR ---
TYLENOL GIVEN IV ORDERED. PT NOT WANTING TO USE MAINTENANCE SHOP LABORER PUMP.
[2020-05-03] VITALS (7 sets, daily range): BP systolic 129–150; BP diastolic 75–88
[2020-05-03] MEDS: METOCLOPRAMIDE HCL 10 MG/2ML VIAL IV SCH (00:14)
[2020-05-03] MEDS: D5.45%NS/KCL 20MEQ 1,000 ML IV SCH ×2 (00:15→07:15)
--- NOTE | 2020-05-03 07:00 | NUR ---
ASSUMED CARE. AAOX3. ACYANOTIC. PATIENT RESTING IN BED. NO DISTRESS NOTED. CALL LIGHT IN REACH. SIDE RAILS UP X2. BED LOW AND LOCKED. SPOUSE PRESENT AT BEDSIDE.
[2020-05-03] MEDS ORDERED: HYDROMORPHONE 1MG/1ML INJ IV PRN (11:45)
--- NOTE | 2020-05-03 11:54 | NUR ---
CURATOR ZOOLOGICAL MUSEUM PUMP DISCONTINUED PER PHYSICIAN ORDER
[2020-05-03] MEDS: ACETAMINOPHEN/CODEINE 300MG - 30MG TAB PO PRN ×2 (14:03→17:55)
[2020-05-03] MEDS: CEFTRIAXONE SOD 2 GM/NS 100 ML 100 ML IV SCH (15:31)
[2020-05-03] MEDS: PANTOPRAZOLE 40 MG 10ML VIAL IV SCH (17:20)
--- NOTE | 2020-05-03 19:40 | NUR ---
BEDSIDE SHIFT REPORT RECEIVED FROM DAY RN. PT IS ALERT AND ORIENTED X3. RESPIRATIONS ARE EVEN AND UNLABORED. TELE ONPIV 20 G RT AC INFUSING AT 30 ML/HR. SITE HEALTHY. ABDOMINAL DRESSING DRY AND INTACT. ABD BINDER ON. LANDIN TO GRAVITY. URINE IS CLEAR YELLOW IN COLOR. PT TOLERATING PO WELL. CALL LIGHT WITHIN REACH. BED LOCKED AND IN LOW POSITION.
[2020-05-03] MEDS: ONDANSETRON HCL INJ 2MG/ML 2ML 2 MG/ML VIAL IV PRN (20:46)
[2020-05-04] VITALS: BP 120/74
[2020-05-04 04:48] VITALS: BP 124/74
[2020-05-04] MEDS: ACETAMINOPHEN/CODEINE 300MG - 30MG TAB PO PRN ×3 (05:31→15:31)
[2020-05-04] MEDS: D5.45%NS/KCL 20MEQ 1,000 ML IV SCH (06:39)
--- NOTE | 2020-05-04 07:05 | NUR ---
Bedside shift report received. Patient lying in bed with eyes open. Denies pain at this time. Indwelling ritchie catheter intact, secured to leg draining yellow-colored urine to bag. S/P surgical site with abdominal binder in placed. Call light in reach.
[2020-05-04 08:05] VITALS: BP 135/89
[2020-05-04 08:29] VITALS: BP 135/89
[2020-05-04 12:02] VITALS: BP 139/87
[2020-05-04] MEDS: CEFTRIAXONE SOD 2 GM/NS 100 ML 100 ML IV SCH (15:10)
[2020-05-04 16:12] VITALS: BP 120/69
--- NOTE | 2020-05-04 17:50 | NUR ---
Per Mini CNO patient may take walker and bring it back tomorrow. Orders for Case management to provide patient with walker received. Notified Carla Herrmann RN of orders
--- NOTE | 2020-05-04 18:08 | NUR ---
Nutrition Screen Note RD Recommendation for Physician: -Recommend GI soft diet Plan of Care: RD following, monitoring for tolerance and adequacy Nutrition reason for involvement: length of stay Primary Diagnose(s): surgery (exploratory sigmoid colon resection, resection of colovesical fistula) PMH: diverticulitis (per pt) No H/P Ht: 73 in Wt:389 lb BMI: 51.3 kg/m2 IBW:[address] Assessment: (05/04/20) Chart reviewed. Labs and meds reviewed. Pt is a 40 year old male admitted for surgery (exploratory sigmoid colon resection, resection of colovesical fistula on 04/29). Pt was advanced to a regular diet today and stated he consumed most of his meal. Pt was also previously tolerating liquid diet with 75-100% intake. Pt reports he has lost weight and used to weigh 390-400 lbs but was unsure of the timeframe of weight loss. No N/V or chewing/swallowing issues. Pt also mentioned he has a history of diverticulitis and requested diet information. RD discussed and provided written materials regarding low fiber diet for diverticulitis. Pt verbalized understanding. Will continue to monitor. Current Diet: regular Malnutrition Evaluation (05/04/20) The patient does not meet criteria for a specified degree of malnutrition at this time. Will re-evaluate at follow-up as appropriate. Diet Education Needs Assessment: Pt mentioned he has a history of diverticulitis and requested diet information. Learner(s): pt Barriers: no barriers identified Cultural/Language Modifications: no cultural/language modifications Readiness: eager/acceptance Method: explanation/discussion/handout Topics: low fiber diet for diverticulitis Understanding/Compliance: pt verbalized understanding Nutrition Care Level: low Signed: Soumya Grant, RD, LD
[2020-05-04] MEDS ORDERED: NORCO 7.5-3251 EACH PO (18:12)
[2020-05-04] MEDS ORDERED: CIPRO500 MG PO (18:13)
--- NOTE | 2020-05-04 19:00 | NUR ---
Discharge education provided. Discharge packet and prescription handed to patient. Spouse at bedside. Patient is educated regarding ritchie catheter care. Leg bag is placed and provided overnight bag as well. Verbalized understanding and return demonstration given by the spouse. Verbalized understanding regarding follow-up appointment with Dr. Rohan De Jesus and Dr. Faulkner. Education regarding care of the abdominal surgical site, verbalized understanding. PIV to Right AC removed, catheter intact, no bleeding noted. Patient is advised to call community case manager tomorrow to follow-up with the ordered walker by Dr. Rohan De Jesus and return the borrowed walker from [facility] if ordered walker is ready for picking tech. Verbalized understanding.
--- NOTE | 2020-05-04 19:11 | NUR ---
Transported patient via wheelchair to private vehicle with all personal belongings taken by the spouse and carried to private vehicle.
--- NOTE | 2020-05-04 19:18 | NUR ---
patient aware to bring PMC walker back tomorrow
--- NOTE | 2020-05-06 13:34 | NUR ---
ABRIL CALLED UPSET, SHE STATES WAS GIVEN A LOANER WALKER, WHICH SHE RETURNED AND NEVER GOT A WALKER OR BED SIDE COMMODE. LOOKED AT ORDERS THERE IS NOT ONE FOR THE BED SIDE COMMODE, TOOK WALKER WITH NOTE TO MINILAB OPERATOR OFFICE TAPED TO WALKER, WILL REHAB DIRECTOR OCCUPATIONAL THERAPIST WHEN SHE GETS OFF WORK TODAY OR TOMORROW. SPOKE WITH NURSING MANAGEMENT ABOUT THE NURSES AND THEIR ABILITY TO GIVE A WALKER AFTER HOURS, THEY ARE ALLOWED. THEY WILL EDUCATE
== END 2020-05-04 19:11 | disposition home or self-care (01) | DRG 330 ==
LOC: OR 06:52 → PACU V 14:55 → MED/SURG 16:36
PROVIDERS: ADMIT Surgery; ATTEND Surgery
PROC: 0DBP0ZZ Excision of Rectum, Open Approach (ICD-10-PCS; 2020-04-29)
PROC: 0TQB0ZZ Repair Bladder, Open Approach (ICD-10-PCS; principal; 2020-04-29 10:34)
PROC: 0DTG0ZZ Resection of Left Large Intestine, Open Approach (ICD-10-PCS; 2020-04-29 10:34)
DX: K57.32 Diverticulitis of large intestine without perforation or abscess without bleeding (principal); N32.1 Vesicointestinal fistula; Z68.43 Body mass index [BMI] 50.0-59.9, adult; K42.9 Umbilical hernia without obstruction or gangrene; E66.01 Morbid (severe) obesity due to excess calories; Z09 Encounter for follow-up examination after completed treatment for conditions other than malignant neoplasm; Z96.0 Presence of urogenital implants; Z20.828 Contact with and (suspected) exposure to other viral communicable diseases
CPT/HCPCS: 36415; 80048; 80053; 85025; 88307; J0330; J0690; J0696; J1100; J1170; J1580; J2001; J2250; J2370; J2405; J2765; J3010; U0002

== ENCOUNTER → 2020-05-12 | Outpatient (CLI) | payer BC, MEDICARE ==
[~2020-05-12] MED LIST changes: +CIPRO500 MG PO; +IBUPROFEN200 MG PO; +NITROFURANTOIN100 MG PO; +NORCO 7.5-3251 EACH PO; +SODIUM CHLORIDE 0.9% 500ML 500 ML ONE
== END ==
LOC: CT 12:25
PROVIDERS: ATTEND Urology
DX: N32.1 Vesicointestinal fistula (principal)
CPT/HCPCS: 72193; J7040

== ENCOUNTER → 2020-05-29 | Day surgery (SDC) | payer BC, MEDICARE ==
[2020-05-26 14:12] LABS: BASOPHILS % 0.4 % (0.0-1.0); EOSINOPHILS # (AUTO) 0.5 (0.0-0.4); EOSINOPHILS % 4.9 % (0.0-6.0); HEMATOCRIT 46.1 % (38.2-49.6); HEMOGLOBIN 15.3 g/dL (14.0-18.0); LYMPHOCYTES # (AUTO) 2.2 (1.0-3.2); LYMPHOCYTES % 23.3 % (18.0-39.1); MEAN CORPUSCULAR HEMOGLOBIN 27.8 pg (28-32); MEAN CORPUSCULAR HGB CONC 33.2 g/dL (31-35); MEAN CORPUSCULAR VOLUME 83.8 fL (81-99); MONOCYTES # (AUTO) 0.4 (0.2-0.8); MONOCYTES % 3.6 % (4.4-11.3); NEUTROPHILS # (AUTO) 6.4 (2.1-6.9); PLATELET COUNT 277 x10e3/uL (140-360); RED CELL DISTRIBUTION WIDTH 14.6 % (11.7-14.4)
[2020-05-26 14:39] LABS: ANION GAP 12.5 mmol/L (8-16); BLOOD UREA NITROGEN 10 mg/dL (7-26); BUN/CREATININE RATIO 13 (6-25); CARBON DIOXIDE 24 mmol/L (22-29); CHLORIDE 105 mmol/L (98-107); CREATININE, SERUM 0.77 mg/dL (0.72-1.25); EST GLOMERULAR FILTRATION RATE > 60 ML/MIN (60-); GLUCOSE 137 mg/dL (74-118); POTASSIUM 3.5 mmol/L (3.5-5.1); SODIUM 138 mmol/L (136-145)
[~2020-05-29] MED LIST changes: +B&O 60MG R/S 60 MG SUPP PR ONE; +CEFEPIME 1GM/NS 0.9% 50 ML 100 ML IV ONE; +DEXAMETHASONE SOD PHOS INJ 4 MG/ML VIAL ONE; +FENTANYL CITRATE/PF 100MCG/2 ML INJ ONE; +GENTAMICIN IV ONE; +IOPAMIDOL 300MG/ML 50ML INFUS..BTL IV ONE; +LIDOCAINE HCL 2% JELLY 5 ML TUBE ONE; +ONDANSETRON HCL INJ 2MG/ML 2ML 2 MG/ML VIAL ONE; +PROPOFOL IV EMULSION 10 MG/ML 20 ML VIAL ONE; +ROCURONIUM BROMIDE 10 MG/ML 5ML VIAL IV ONE; +SEVOFLURANE INHAL SOLN 250 ML PEN BTL ONE; -SODIUM CHLORIDE 0.9% 500ML 500 ML ONE; +SUCCINYLCHOLINE CHLORIDE 20 MG/ML 10ML VIAL ONE; +[UNRECOGNIZED DRUG - OTHER] IV ONE
[2020-05-29 11:05] VITALS: BP 116/75
== END | disposition home or self-care (01) ==
LOC: OR 07:03
PROVIDERS: ATTEND Urology
DX: N13.30 Unspecified hydronephrosis (principal); N35.919 Unspecified urethral stricture, male, unspecified site; Z46.6 Encounter for fitting and adjustment of urinary device; N28.89 Other specified disorders of kidney and ureter; I10 Essential (primary) hypertension; E66.9 Obesity, unspecified; R06.83 Snoring; Z88.6 Allergy status to analgesic agent; Z01.810 Encounter for preprocedural cardiovascular examination; Z01.812 Encounter for preprocedural laboratory examination; Z01.818 Encounter for other preprocedural examination; Z20.828 Contact with and (suspected) exposure to other viral communicable diseases; Z68.43 Body mass index [BMI] 50.0-59.9, adult
CPT/HCPCS: 36415; 52351; 74018; 74420; 80048; 85025; 93005; C1758; C1769; J0330; J0692; J1100; J1580; J2001; J2405; J2704; J3010; Q9967; U0002